=== PATIENT | female | born 1960 | race Caucasian/White ===

== ENCOUNTER 2016-09-06 18:54 | Observation (INO) | payer OTHER ==
--- NOTE | ~2016-09-06 | HP ---
History And Physical [address] [place]. [address] NAME: AURA BARKSDALE : 62 STATUS : ADM IN [facility]#: [id number] AGE: 56 ADM/REG DATE : 09/06/16 MR#: [id number] REPORT SERV DATE: 09/07/16 DICTATED BY: ARVIND CHRISTINE DATE: 09/06/16 REPORT STATUS : Draft TRANSCRIBED BY: MODAl DATE: 09/06/16 DATE OF ADMISSION: 09/06/2016 POINT OF ENTRY: [facility] Emergency Department. PRIMARY TRAIN STARTER: Addy Nance M.D. PRIMARY DIETITIAN CONSULTANT: Arvind Perez M.D. CHIEF COMPLAINT: Hematochezia and bright red blood per rectum. HISTORY OF PRESENT ILLNESS: Ms Barksdale is a 56-year-old female with a history of chronic anemia, iron deficiency anemia, peptic ulcer disease and diverticulosis who presents to the emergency room today with a few day history of abdominal pain, nausea, vomiting, as well as hematochezia. The patient states that beginning about 3 days ago, she started to develop diffuse primarily lower quadrant abdominal pain with associated nausea, occasional episodes of vomiting as well as multiple episodes of hematochezia, and bright red blood per rectum. She denies any fevers, night sweats, chills, chest pain, palpitations, shortness of breath, cough, or sputum production. Initial evaluation in the emergency room notable for hemoglobin of 9.8, white count was 13.3, BUN is 68, creatinine is 3.8. A CT of the abdomen and pelvis showed nonspecific colitis as well as evidence of distal diverticulosis. She was subsequently admitted to the Hospitalist Service for further evaluation and management. REVIEW OF SYSTEMS: Comprehensive review of systems otherwise negative unless listed in history of present illness. PREVIOUS MEDICAL HISTORY: 1. Chronic anemia. 2. Iron-deficiency anemia. 3. Gastroesophageal reflux disease and peptic ulcer disease. 4. Hypertension. 5. Hyperlipidemia. 6. Insulin-dependent diabetes mellitus type 2. 7. COPD. 8. Chronic kidney stage III, baseline creatinine 1.7 to 2.2. 9. Prior history of TIA. 10.Nonobstructive coronary artery disease. 11.Diverticulosis. SURGICAL HISTORY: Abdominal hysterectomy and shoulder surgery. History And Physical [address] [place] [address] NAME: AURA BARKSDALE : 62 STATUS : ADM IN PAT#: [id number] AGE: 56 ADM/REG DATE : 09/06/16 MR#: [id number] REPORT SERV DATE: 09/07/16 DICTATED BY: ARVIND CHRISTINE DATE: 09/06/16 REPORT STATUS : Draft TRANSCRIBED BY: MODAl DATE: 09/06/16 ALLERGIES: TO PENICILLIN AND LACTOSE. HOME MEDICATIONS: 1. Albuterol one puff inhalation p.r.n. shortness of breath. 2. Norvasc 5 mg daily. 3. Aspirin 81 mg daily. 4. Lactaid 1-2 tabs p.r.n. 5. Symbicort two puffs inhalation b.i.d. 6. Cilostazol 100 mg b.i.d. 7. Toujeo 100 units b.i.d. 8. Insulin Regular 12 units before meals. 9. Integra Plus capsule 1 tab daily. 10.Imdur 60 mg daily. 11.Toprol-XL 100 mg daily. 12.Protonix 40 mg b.i.d. 13.Crestor 40 mg at bedtime. 14.Senokot-D 2 tabs at bedtime. 15.Trazodone 50 mg at bedtime. SOCIAL HISTORY: Denies any tobacco, alcohol, or illicits. FAMILY MEDICAL HISTORY: Mother advanced age of meningitis. Father with coronary artery disease and diabetes. LABS AND IMAGIN. White count 13.3, hemoglobin 9.8, hematocrit 29.7, platelet count 334, INR is 1.0, MCV is 93. 2. Sodium is 135, potassium 4.4, chloride 99, carbon dioxide 25, BUN 68, creatinine 3.83, glucose is 127, calcium is 8.6, protein 7.2, albumin 3.2, bilirubin is 0.2, ALT is 23, AST 17, alkaline phosphatase is 114. 3. Lipase is 108. 4. CT of the abdomen and pelvis shows nonspecific colitis as well as distal diverticulosis. 5. EKG per review shows normal sinus rhythm. No evidence of any acute ischemia or infarction. PHYSICAL EXAMINATION: VITAL SIGNS: Temperature is 97.3 degrees Fahrenheit, pulse is 90, respirations 18, saturating 94% on room air. Blood pressure is 107/58. On recheck, blood pressure is now 96/50, pulse is 77. GENERAL: The patient is awake, alert, in no acute distress. Resting comfortably in bed. Well-developed, well-nourished, female. HEENT: Atraumatic and normocephalic. Slightly dry mucous membranes. Pupils are equal, round, reactive to light and accommodation. Extraocular eye movements are intact. No scleral icterus. NECK: No jugular venous distention. No carotid bruits. CARDIAC: Regular rate and rhythm. No murmurs, rubs, or gallops. Normal S1, S2. History And Physical [address] [address] NAME: AURA BARKSDALE : 62 STATUS : ADM IN [facility]#: [id number] AGE: 56 ADM/REG DATE : 09/06/16 MR#: [id number] REPORT SERV DATE: 09/07/16 DICTATED BY: ARVIND CHRISTINE DATE: 09/06/16 REPORT STATUS : Draft TRANSCRIBED BY: ARIANA DATE: 09/06/16 LUNGS: Clear to auscultation bilaterally. No wheezes, rhonchi, or crackles. ABDOMEN: Soft, mildly tender to palpation in all quadrants primarily left lower quadrant. No rebound, guarding, or rigidity. EXTREMITIES: Warm and perfused. No cyanosis, clubbing, or edema. SKIN: Warm and dry. PSYCH: Affect appropriate. NEURO: Alert, oriented x3. Cranial nerves 2 through 12 grossly intact. Speech is normal. Gait is not assessed. ASSESSMENT AND PLAN: Ms Barksdale is a 56-year-old female, who presents with a few day history of abdominal pain, nausea, vomiting, as well as hematochezia and found to have evidence of colitis. PROBLEM LIST: 1. Colitis. 2. Hematochezia. 3. Acute kidney injury on chronic kidney disease stage 3. 4. Leukocytosis. 5. Chronic iron-deficiency anemia. 6. Insulin-dependent diabetes mellitus type 2. 7. Hypertension. PLAN: 1. Colitis. We will place on IV antibiotics of Flagyl and Levaquin. Check stool studies such as stool culture, C. diff, and ova and parasites. 2. Hematochezia likely secondary to colitis. We will consult the patient's primary sole stapler welt Dr. Nance for assistance. Of note, the patient does report that last lab, her hemoglobin was 12 and is now 9.8 and shows some moderate amount of decline. We will check q.6 hours hemoglobin and hematocrit first 24 hours, transfuse hemoglobin less than 7. 3. Acute kidney injury on chronic kidney disease stage III likely secondary to GI losses and poor oral intake for the last few days. Holding nephrotoxic medications. Provide IV fluid hydration. Checking renal ultrasound as well as urine lytes. 4. Leukocytosis, again likely secondary to colitis but we will check urinalysis as well as chest x-ray. 5. Insulin-dependent diabetes mellitus type 2. Continue patient's home Toujeo, holding nutritional insulin given n.p.o. status. Placed on level 2 sliding scale. 6. Hypertension. Hold patient's medications for systolics less than 120. 7. DVT prophylaxis, TEDs and SCDs given bleeding. CODE STATUS: The patient wished to be full code. ENDY/ARIANA Arvind Barreto History And Physical [address] [address] NAME: AURA BARKSDALE : 62 STATUS : ADM IN [facility]#: [id number] AGE: 56 ADM/REG DATE : 09/06/16 MR#: [id number] REPORT SERV DATE: 09/07/16 DICTATED BY: ARVIND CHRISTINE DATE: 09/06/16 REPORT STATUS : Draft TRANSCRIBED BY: ARIANA DATE: 09/06/16 MD Hal / [id number] CC: DO Haroon Prieto M.D. James A Tumlin, M.D. Sumeet Bhushan, M.D.
--- NOTE | ~2016-09-06 | DS ---
Discharge Summary [facility] [address] [place]. [address] NAME: AURA BARKSDALE : 62 STATUS : ADM IN [facility]#: [id number] AGE: 56 ADM/REG DATE : 09/06/16 MR#: [id number] REPORT SERV DATE: 09/07/16 DICTATED BY: BERTHA RICHARD DATE: 09/07/16 REPORT STATUS : Draft TRANSCRIBED BY: MODL DATE: 09/07/16 ADMISSION DATE: 09/06/2016 DISCHARGE DATE: 09/07/2016 FINAL HOSPITAL DIAGNOSES: 1. Hematochezia. 2. Colitis. 3. Anemia. 4. Diabetes. 5. Hypertension. 6. Chronic obstructive pulmonary disease. 7. Chronic kidney disease. CONSULTATIONS: GI. PROCEDURES: CT scan of the abdomen and pelvis done on the showing mild colitis in the transverse and descending colon. There was some distal diverticulosis. CURRENT PHYSICAL FINDINGS AND HPI: Please see dictated H and P by Dr. Hong. In brief, the patient is a 56-year-old female, who was admitted with above complaints. Initial lab work showed a creatinine of 3.83, subsequent repeat was 2.84, baseline appears to be around 2.0. Initial white count was 13, subsequent was 10; initial H and H was 9.8, subsequent was 8.8. HOSPITAL COURSE: The patient was admitted. GI was consulted, Dr. Nance. She was given IV fluids. Cultures were drawn. She was started on sliding scale and IV antibiotics, Levaquin and Flagyl. The patient apparently had an uneventful evening in the hospital. She was seen by GI, Dr. Jacobs in the a.m. and scheduled for prep and a colonoscopy. However, unfortunately, the patient was notified that her son had been in a major motor vehicle accident and was in critical condition. Ms. Barksdale felt she needed to be discharged to be with her son. Unfortunately, I was attending a patient in the IMCU and was not able to immediately come down to discharge her and she was unable to wait for me before leaving to see her son. She did sign the [facility] papers. We will certainly be available after her family crisis if any additional treatment or needs are noted. The patient left [facility] due to a family emergency on the morning of 09/07/2016. TLF/ARIANA Bertha Richard M.D. / [id number] Discharge Summary [place] [place] [place]. [address] NAME: AURA BARKSDALE : 62 STATUS : ADM IN PAT#: [id number] AGE: 56 ADM/REG DATE : 09/06/16 MR#: [id number] REPORT SERV DATE: 09/07/16 DICTATED BY: BERTHA RICHARD DATE: 09/07/16 REPORT STATUS : Draft TRANSCRIBED BY: ARIANA DATE: 09/07/16 CC: Antwan Vu M.D.
--- NOTE | ~2016-09-06 | CN ---
Consultation Report [facility] [address] [place]. [address] NAME: AURA BARKSDALE : 62 STATUS : DIS IN PAT#: [id number] AGE: 56 ADM/REG DATE : 09/06/16 MR#: [id number] REPORT SERV DATE: 09/09/16 DICTATED BY: DARLING JACOBS DATE: 09/07/16 REPORT STATUS : Draft TRANSCRIBED BY: MODAl DATE: 09/07/16 GI CONSULTATION DATE OF CONSULTATION: REASON FOR CONSULTATION: Abdominal pain and GI bleed. HISTORY OF PRESENT ILLNESS: Ms. Barksdale is a 56-year-old lady, a patient of Dr. Addy Nance, who presented to the emergency room with lower abdominal pain and cramping going on for a few days, now also associated with bleeding per rectum. The patient has a history of iron-deficiency anemia and actually has been seen by Dr. Almendarez in the past. She is also under the care of Dr. Hickman. In the past, at one point, she had a hemoglobin of 3, underwent an EGD and a colonoscopy and a capsule exam at that time, and it showed multiple large gastric erosions, duodenal erosions, and small bowel AVMs. She was at that time on pantoprazole. When she was admitted in 07/2015, Dr. Almendarez had seen and with a low hemoglobin, and after workup she was told that she had no acute findings. Dr. Nance has done an EGD on her on 04/02/2016, which revealed a normal esophagus with a small hiatal hernia, nonbleeding erosive gastropathy, and two nonbleeding AVMs in the duodenum that he had cauterized using an argon beam coagulation. As mentioned, she comes in with lower abdominal pain, cramping, and lower GI bleed. On admission, her vitals have been stable. She was found to have a hemoglobin of 8.8, which is down from in the past. At one point when Dr. Hickman saw her in 03/2016, the hemoglobin was 9.8. Her white count is 10.7 and platelets are 253,000 with an INR of 1. Her chemistry panel revealed a BUN and creatinine of 55 and 2.84. She has a history of chronic kidney disease stage 3 and is under the care of Nephrology. This time on admission, her bicarb was 25 and is down to [address] scan of the abdomen and pelvis done through the emergency room without contrast revealed mild colitis in the transverse and descending colon. Also some distal diverticulosis. She tells me at this point today she is feeling some better. The bleeding has slowed down, but she still has some slimy bloody BM. Actually, she has had only one since admission. MEDICAL HISTORY: 1. Severe DANI for which she has had an extensive workup before. 2. 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 3. Diverticulosis. 4. Chronic kidney disease. 5. Diabetes. 6. Hypertension. 7. COPD. 8. Past TIA. 9. Acid reflux. Consultation Report [address] [place]. [address] NAME: AURA BARKSDALE : 62 STATUS : DIS IN PAT#: [id number] AGE: 56 ADM/REG DATE : 09/06/16 MR#: [id number] REPORT SERV DATE: 09/09/16 DICTATED BY: DARLING JACOBS DATE: 09/07/16 REPORT STATUS : Draft TRANSCRIBED BY: ARIANA DATE: 09/07/16 HOME MEDICATIONS: Include albuterol, amlodipine, baby aspirin, Symbicort, Pletal, insulin, iron, Imdur, Toprol-XL, Protonix, Crestor, Desyrel, and IBgard. ALLERGIES: PENICILLIN. HABITS: Does not smoke or drink. FAMILY HISTORY: No first-degree relatives with any colon or pancreatic cancers. REVIEW OF SYSTEMS: GENERAL: Describes the general health to be fair. There is no fever, chills, or weight loss. There is anorexia and weakness. No dizziness, itching, night sweats, or night fevers. SKIN: Normal. HEENT: Vision is decreasing. Hearing is normal. ENDOCRINE: Diabetes. GENITOURINARY: Negative. MUSCULOSKELETAL: History of back pain and arthritis. NEUROLOGICAL: History of TIA. GASTROINTESTINAL: As mentioned above. PULMONARY: No shortness of breath or cough. CARDIOVASCULAR: No chest pain or palpitations. PAST SURGERIES: Include a complete hysterectomy. PHYSICAL EXAMINATION: GENERAL: She is a fully alert, oriented 56-year-old, in no acute distress at this point, just complaining of some mild lower abdominal discomfort. NECK: Supple without lymphadenopathy, thyromegaly, or carotid bruits. HEENT: Normal. LUNGS: Reveal good air entry bilaterally. No rales or rhonchi. CARDIOVASCULAR SYSTEM: Reveals normal S1, S2. No gallop, rub, or murmur. CENTRAL NERVOUS SYSTEM: Normal. ABDOMEN: Soft and nondistended with tenderness in the left side of the abdomen. There is no mass, guarding, rigidity, or rebound. Liver and spleen not palpable. Clinically no ascites. EXTREMITIES: Without edema. IMPRESSION: 1. Left-sided abdominal pain with hematochezia, and CT scan showing colitis of the descending and transverse colon, most likely a case of left-sided ischemic colitis. 2. Chronic iron deficiency anemia. 3. Other problems as mentioned above. Consultation Report [address] [place]. [address] NAME: AURA BARKSDALE : 62 STATUS : DIS IN PAT#: [id number] AGE: 56 ADM/REG DATE : 09/06/16 MR#: [id number] REPORT SERV DATE: 09/09/16 DICTATED BY: DARLING JACOBS DATE: 09/07/16 REPORT STATUS : Draft TRANSCRIBED BY: ARIANA DATE: 09/07/16 RECOMMENDATIONS: Discussed the case with the patient. The patient is agreeable for a colonoscopy, and we will plan colonoscopy for tomorrow. TROY/ARIANA Emanuel Jacobs M.D. / [id number] CC: Antwan Vu M.D. James A Tumlin, M.D. Sumeet Bhushan, M.D.
[2016-09-06 15:42] LABS: BASOPHILS 0.4 %; BASOPHILS ABSOLUTE 0.05 10/3/uL (0.0-0.16); EOSINOPHILS 4.3 %; EOSINOPHILS ABSOLUTE 0.57 10/3/uL (0.0-0.53); HEMATOCRIT 29.7 % (36.0-48.0); HEMOGLOBIN 9.8 g/dL (12.0-16.0); IMMATURE GRANULOCYTES 0.2 %; IMMATURE GRANULOCYTES ABSOLUTE 0.02 10/3/uL (0.0-0.11); LYMPHOCYTES ABSOLUTE 1.33 10/3/uL (0.67-4.30); MEAN PLATELET VOLUME 10.1 fL (9.2-13.0); MONOCYTES 6.8 %; NEUTROPHILS 78.3 %; NEUTROPHILS ABSOLUTE 10.43 10/3/uL (2.02-8.40); PLATELET COUNT 334 10/3/uL (150-400)
[2016-09-06 15:43] LABS: MANUAL DIFF NO %; MEAN CORPUSCULAR HEMOGLOB 30.6 pg (26.0-34.0); MEAN CORPUSCULAR VOLUME 92.8 fL (80-100); RBC DISTRIBUTION WIDTH 14.9 % (12.0-16.0); WHITE BLOOD CELLS 13.3 10/3/uL (4.5-10.5)
[2016-09-06 15:51] LABS: PARTIAL THROMBO TIME 31.5 SEC (22.5-37.2); PROTIME (NOT ORD) 12.9 SEC (12.0-14.5)
[2016-09-06 15:57] LABS: CALCIUM, SERUM 8.6 MG/DL (8.5-10.4); CO2 (CARBON DIOXIDE) 25 MMOL/L (24-34); GLUCOSE, SERUM 127 MG/DL (60-99); POTASSIUM, SERUM 4.4 MMOL/L (3.5-5.3); SGOT(AST) 17 U/L (5-40); SGPT(ALT) 23 U/L (5-65); SODIUM, SERUM 135 MMOL/L (135-148); TOTAL BILIRUBIN 0.2 MG/DL (0-1.2); TOTAL PROTEIN 7.2 G/DL (6.0-8.5)
[2016-09-06 15:58] LABS: BUN (BLOOD UREA NITROGEN) 68 MG/DL (6-23); CHLORIDE, SERUM 99 MMOL/L (96-112); CREATININE 3.83 MG/DL (0.55-1.02); GFR AFRICAN AMERICAN 14 ML/MIN (>=60); GFR NON AFRICAN AMERICAN 12 ML/MIN (>=60)
[2016-09-06 15:59] LABS: A/G RATIO 0.8 (0.7-1.9); ALBUMIN 3.2 G/DL (3.5-5.0); ALKALINE PHOSPHATASE 114 U/L (45-117)
[~2016-09-06 18:54] MED LIST: ASAB PO; FERROUS SULF325 M1 PO; FISH-EPA1000 MG PO; GLUCOPHAGE1000 MG PO; IMDUR30 PO; INSNOVN SC; INSNOVR SC; IRON325 MG PO; LIPITOR80 MG PO; LISINOPRIL40 MG PO; LOP50 PO; MIRALAXPKT PO; NEUR600 PO; NORCO1 TA2 PO; NORV5 PO; PROTONIX PO; SENTAB PO; SLO-NIACIN500 MG PO; SLOWMAG PO; SYMBICORT 160/41 INH INH; TRAZ50 PO; VENTOLIN HFA INH
[2016-09-06 19:03] LABS: DIRECT BILIRUBIN < 0.1 MG/DL (0.0-0.4); INDIRECT BILIRUBIN(NOT ORDER) 0.1 MG/DL (0.1-0.9)
[2016-09-06] MEDS ORDERED: INSNOVR SC (21:13)
[2016-09-06] MEDS ORDERED: ASAB PO (21:14)
[2016-09-06] MEDS ORDERED: TOUJEO SC (21:14)
[2016-09-06] MEDS ORDERED: CILOSTAZOL100 MG PO (21:17)
[2016-09-06] MEDS ORDERED: CRESTOR40 MG PO (21:18)
[2016-09-06] MEDS ORDERED: NORV5 PO (21:18)
[2016-09-06] MEDS ORDERED: PROTONIX PO (21:18)
[2016-09-06] MEDS ORDERED: PERI-COLACE1 TAB PO (21:18)
[2016-09-06] MEDS ORDERED: TRAZ50 PO (21:18)
[2016-09-06] MEDS ORDERED: LACTAID FAS9000 UNI1 PO (21:19)
[2016-09-06] MEDS ORDERED: SYMBICORT 160/41 INH INH (21:20)
[2016-09-06] MEDS ORDERED: [UNRECOGNIZED DRUG - OTHER] PO (21:20)
[2016-09-06] MEDS ORDERED: IMDUR60 PO (21:20)
[2016-09-06] MEDS ORDERED: VENTOLIN HFA INH (21:20)
[2016-09-06] MEDS ORDERED: INTEGRA PLUS C1 EACH PO (21:21)
[2016-09-06] MEDS ORDERED: TOPXL100 PO (21:21)
[2016-09-07 01:47] LABS: HEMOGLOBIN 8.7 g/dL (12.0-16.0)
[2016-09-07 01:50] LABS: HEMATOCRIT 26.6 % (36.0-48.0)
[2016-09-07 04:57] LABS: CREATININE, URINE 34.5 MG/DL
[2016-09-07 07:27] LABS: HEMOGLOBIN 8.8 g/dL (12.0-16.0); MEAN CORPUS HGB CONC 31.4 g/dL (32.0-36.0); MEAN CORPUSCULAR HEMOGLOB 30.2 pg (26.0-34.0); MEAN PLATELET VOLUME 9.9 fL (9.2-13.0); NUCLEATED RED BLOOD CELLS 0.3 /100WBC (0-0); PLATELET COUNT 253 10/3/uL (150-400); RBC DISTRIBUTION WIDTH 14.9 % (12.0-16.0); RED CELL COUNT 2.91 10/6/uL (4.0-5.6); WHITE BLOOD CELLS 10.7 10/3/uL (4.5-10.5)
[2016-09-07 07:28] LABS: MEAN CORPUSCULAR VOLUME 96.2 fL (80-100)
[2016-09-07 07:29] LABS: MANUAL DIFF YES %
[2016-09-07 07:38] LABS: CALCIUM, SERUM 8.7 MG/DL (8.5-10.4); CHLORIDE, SERUM 112 MMOL/L (96-112); SODIUM, SERUM 141 MMOL/L (135-148)
[2016-09-07 07:39] LABS: BUN (BLOOD UREA NITROGEN) 55 MG/DL (6-23); CO2 (CARBON DIOXIDE) 18 MMOL/L (24-34); CREATININE 2.84 MG/DL (0.55-1.02); GFR AFRICAN AMERICAN 21 ML/MIN (>=60); GFR NON AFRICAN AMERICAN 18 ML/MIN (>=60); GLUCOSE, SERUM 75 MG/DL (60-99)
[2016-09-07 08:14] LABS: BAND NEUTROPHILS 6 %; EOSINOPHILS 1 %; EOSINOPHILS ABSOLUTE (CALC) 0.11 10/3/uL (0.0-0.53); HYPOCHROMIA 1+ (3-10/OIF) (0-2/OIF); LYMPHOCYTES 10 %; LYMPHOCYTES ABSOLUTE (CALC) 1.07 10/3/uL (0.67-4.30); MONOCYTES 6 %; MONOCYTES ABSOLUTE (CALC) 0.64 10/3/uL (0.21-1.20); NEUTROPHILS ABSOLUTE (CALC) 8.88 10/3/uL (2.02-8.40); PLATELET ESTIMATE ADQ (ADEQUATE); SEGMENTED NEUTROPHIL (0) 77 %; TOTAL NUCLEATED CELLS 100
== END 2016-09-07 13:26 | disposition left against medical advice (07) ==
LOC: ER 18:54 → 7NO 22:15
PROVIDERS: Emergency Medicine; Internal Medicine
DX: K92.1 Melena (principal); K52.9 Noninfective gastroenteritis and colitis, unspecified; K21.9 Gastro-esophageal reflux disease without esophagitis; E78.5 Hyperlipidemia, unspecified; I13.0 Hypertensive heart and chronic kidney disease with heart failure and stage 1 through stage 4 chronic kidney disease, or unspecified chronic kidney disease; I50.9 Heart failure, unspecified; N18.9 Chronic kidney disease, unspecified; E11.22 Type 2 diabetes mellitus with diabetic chronic kidney disease; J44.9 Chronic obstructive pulmonary disease, unspecified; I25.10 Atherosclerotic heart disease of native coronary artery without angina pectoris; Z86.73 Personal history of transient ischemic attack (TIA), and cerebral infarction without residual deficits; Z90.710 Acquired absence of both cervix and uterus; Z98.890 Other specified postprocedural states; Z88.0 Allergy status to penicillin; Z88.8 Allergy status to other drugs, medicaments and biological substances; Z79.82 Long term (current) use of aspirin; Z79.899 Other long term (current) drug therapy
CPT/HCPCS: 36415; 36430; 74176; 80048; 80053; 82248; 82570; 82962; 83690; 83935; 84300; 85014; 85018; 85025; 85610; 85730; 86850; 86900; 86901; 86920; 93005; 94640; 96374; 96375; 96376; 99285; A9270-GY; C9113; G0378; J1956

== ENCOUNTER 2016-10-10 20:07 | Inpatient (IN) | payer OTHER ==
--- NOTE | ~2016-10-10 | HP ---
History And Physical [address] [place]. [address] NAME: AURA BRICE : 62 STATUS : ADM IN [facility]#: [id number] AGE: 56 ADM/REG DATE : 10/11/16 MR#: [id number] REPORT SERV DATE: 10/11/16 DICTATED BY: MEIR BETHEA DATE: 10/11/16 REPORT STATUS : Draft TRANSCRIBED BY: MODAl DATE: 10/11/16 DATE OF ADMISSION: 10/11/2016 CHIEF COMPLAINT: A 56-year-old female presenting with abdominal pain and low blood pressure. HISTORY OF PRESENTING ILLNESS: The patient's history was obtained through careful interview with the patient, coupled with review of [facility] medical records. The patient in August 2016, presented to the hospital with colitis. She was thought to be in stable condition, although she states she never really improved from that recent hospital stay. She was not placed on any antibiotics upon discharge from the hospital. Over these last few weeks, the patient has had persistent and even increasing abdominal pain. She describes it is primarily in her left lower quadrant, sometimes radiating towards her flank and that side, an aching quality up to 10/10 severity that effects her on a daily basis. She has had some slight constipation. No diarrhea. She has had mild fevers and chills. Over the last week or so, she has really suffered from lightheadedness and states that she has actually had multiple syncopal episodes over the last four or five days. She states that a few times she has woken up on the kitchen floor. No shortness of breath. She has occasional nonproductive cough. No chest pain and she claims diabetes is under good control. REVIEW OF SYSTEMS: Otherwise, a fourteen-point review of systems was obtained and was negative. PAST MEDICAL HISTORY: 1. COPD. 2. Transient ischemic attack. 3. Colitis, seen by Dr. Addy Nance. 4. Peptic ulcer disease. 5. Duodenal arteriovenous malformations. 6. Chronic kidney disease, stage IV. Baseline creatinine of 2.0 to 2.8. 7. Hypertension. 8. Coronary artery disease, but no percutaneous intervention during catheterization of the heart in 2006. 9. Hypertension. 10.Gastroesophageal reflux disorder. PAST SURGICAL HISTORY: 1. Hysterectomy. 2. Shoulder surgery. History And Physical [facility] [address] [address] NAME: AURA BRICE : 62 STATUS : ADM IN [facility]#: [id number] AGE: 56 ADM/REG DATE : 10/11/16 MR#: [id number] REPORT SERV DATE: 10/11/16 DICTATED BY: MEIR BETHEA DATE: 10/11/16 REPORT STATUS : Draft TRANSCRIBED BY: ARIANA DATE: 10/11/16 ALLERGIES: PENICILLIN AND LACTOSE. SOCIAL HISTORY: Quit smoking 40+ years ago, quit alcohol. She is to her who is a local company intermodal truck driver. She lived most of her life in [place]. She has four children and nine grandchildren. She is to work for a [employer]. She has a dog and a cat that she cares for. FAMILY HISTORY: Mother with meningitis. Father with heart disease and diabetes. CURRENT MEDICATIONS: Include albuterol, aspirin 81 mg p.o. daily, Symbicort two puffs inhaled twice a day, Pletal 100 mg p.o. b.i.d., diltiazem extended release 180 mg daily, Zetia 10 mg p.o. daily, Lasix 20 mg p.o. b.i.d., Toujeo, glargine insulin 100 units subcutaneous twice a day, Novolin R 12 units subcutaneous with meals, iron supplement, lisinopril 10 mg daily, metoprolol-XL 50 mg daily, nitroglycerin, Protonix 40 mg p.o. b.i.d., Crestor 40 mg daily, Colace two tablets at bedtime, trazodone 50 mg p.o. at bedtime "research medication," and Effexor 50 mg p.o. t.i.d. PHYSICAL EXAMINATION: VITAL SIGNS: Temperature 99.5, pulse 88, blood pressure 71/37, respiratory rate 22, O2 saturation 95% on room air. GENERAL: A pleasant, cooperative female, very lethargic, though. HEENT: Pupils equal, round, and reactive to light. No conjunctival pallor. No scleral icterus. Nares are patent. Oropharynx is clear of obstruction. Dry mucous membranes. NECK: Trachea midline. No thyromegaly. LYMPH: No cervical lymphadenopathy. No supraclavicular lymphadenopathy. RESPIRATORY: Clear to auscultation at bases. No wheezes are appreciated. No rales. No rhonchi. The patient has a normal respiratory effort. CARDIOVASCULAR: Regular rate and rhythm. No murmurs, rubs, or gallops. No extremity edema is appreciated. ABDOMEN: Significant left lower quadrant abdominal pain with guarding. No rebound effect. Nondistended. No hepatosplenomegaly. DERMATOLOGICAL: Warm and dry extremities. No pallor. No cyanosis. PSYCHIATRIC: The patient is quite lethargic, but easily aroused. She is oriented x3. She has a normal affect and a very pleasant mood. LABORATORY DATA: White blood count 15.3, hemoglobin 8.7, hematocrit 28.4, and platelets 416. Sodium 139, potassium 4.9, chloride 107, bicarb 23, BUN 68, creatinine 3.07, glucose 76, lipase 215. Troponin negative. Lactic acid 0.2. Liver enzymes within normal limits. Urinalysis negative for infection. STUDIES: 1. Chest x-ray by my own evaluation shows no acute cardiopulmonary process. 2. EKG by my own evaluation shows no acute abnormality, sinus rhythm. 3. CT scan of the abdomen and pelvis shows possible ground-glass opacities in bilateral lung bases, but no significant abdominal process. ASSESSMENT AND PLAN: History And Physical [address] [address] NAME: AURA BRICE : 62 STATUS : ADM IN [facility]#: [id number] AGE: 56 ADM/REG DATE : 10/11/16 MR#: [id number] REPORT SERV DATE: 10/11/16 DICTATED BY: MEIR BETHEA DATE: 10/11/16 REPORT STATUS : Draft TRANSCRIBED BY: MODL DATE: 10/11/16 1. Sepsis with shock, presumptive diagnosis. The patient has elevated white blood count of 16.3, subjective fevers, shock and tachypnea. We will check blood cultures. Place on IV antibiotics. Clinically, it appears as if she has something like recurrent sigmoid colitis or another type of infectious colitis. 2. Acute kidney injury on chronic kidney disease. We will place on IV fluids and monitor. 3. Diabetes. Hemoglobin A1c of 6.7 recently. Continue basal insulin and sliding scale insulin. 4. Chronic obstructive pulmonary disease, placed on DuoNeb nebulizers. 5. Anemia. KPL/MODL Meir Bethea M.D. / [id number] CC: Antwan Lindo M.D. John Wood, M.D. Sumeet Bhushan, M.D.
--- NOTE | ~2016-10-10 | DS ---
Discharge Summary [facility] [address] [place]. [address] NAME: AURA BRICE : 62 STATUS : DIS IN PAT#: [id number] AGE: 56 ADM/REG DATE : 10/11/16 MR#: [id number] REPORT SERV DATE: 10/18/16 DICTATED BY: CALI MCKNIGHT DATE: 10/17/16 REPORT STATUS : Draft TRANSCRIBED BY: ARIANA DATE: 10/17/16 ADMISSION DATE: 10/11/2016 DISCHARGE DATE: 10/17/2016 PROCEDURES DONE: 1. On 10/10/2016, chest x-ray PA and lateral. Prominent right mediastinum may be secondary to prominent superior vena cava. I have no old films for comparison. May wish to consider chest CT if there are any risk factors or suspicious finding of underlying occult malignancy. 2. On 10/11/2016, chest x-ray negative. AP portable chest. 3. On 10/11/2016, CT of the abdomen and pelvis without contrast. There is extensive diverticular formation in sigmoid colon with subtle stranding, questionable small area of cryptic diverticulitis. Edema and abdominal consistent with prior site of subcutaneous injections. Cyst on the right kidney. 4. On 10/12/2016, hip x-ray, left. No acute bony abnormality appreciated. 5. On 10/13/2016, CT kidney protocol. Kidneys are symmetric and normal size, not mechanically obstructed. There is evidence of calcification probably small stone in the right kidney unchanged from prior exam. There is now evidence of more subtle, but definitely inflammatory changes around the sigmoid colon securing a diagnosis of diverticulitis. Subcutaneous edema in abdominal consistent with site of previous medical injections. REASON FOR ADMISSION: Abdominal pain and low blood pressure. HISTORY OF PRESENT ILLNESS: A 56-year-old white female with past medical history of COPD, diabetes type 2, hypertension, chronic kidney disease stage IV, history of peptic ulcer disease, artery coronary disease, presenting with abdominal pain and low blood pressure. The patient was admitted for further evaluation and treatment for abdominal pain and low blood pressure. The patient was previously admitted on August 2016 for colitis. However, the patient had elevated white cell count with fevers and tachypneic at presentation. CT scan of the abdomen and pelvis shows a diverticulitis in the sigmoid colon. The patient was started on Levaquin and Flagyl and subsequently, the patient was able to tolerate p.o. intake and mobilize without any pain. The patient is advised to follow up with her primary care physician within one to two weeks' time. DISPOSITION: The patient is feeling fine, no complaints. ACTIVITIES: As tolerated. DIET: Diabetic. INSTRUCTIONS UPON DISCHARGE: The patient is to followup with PMD within two weeks' time. MEDICATION UPON DISCHARGE: 1. Aspirin 81 mg p.o. daily. 2. Pletal 100 mg p.o. b.i.d. Discharge Summary [address] [address] NAME: AURA BRICE : 62 STATUS : DIS IN PAT#: [id number] AGE: 56 ADM/REG DATE : 10/11/16 MR#: [id number] REPORT SERV DATE: 10/18/16 DICTATED BY: CALI MCKNIGHT DATE: 10/17/16 REPORT STATUS : Draft TRANSCRIBED BY: ARIANA DATE: 10/17/16 3. Diltiazem 180 mg p.o. daily. 4. Zetia 10 mg p.o. at bedtime. 5. Integra Plus capsule one tablet q.a.m. 6. Toujeo 100 units subcu b.i.d. 7. Metoprolol-XL 50 mg p.o. daily. 8. Protonix 40 mg b.i.d. 9. Trazodone 50 mg p.o. at bedtime. 10.Effexor 50 mg p.o. t.i.d. 11.Albuterol one puff p.r.n. 12.Symbicort 160/4.5 two puffs b.i.d. 13.Lisinopril 10 mg p.o. daily. 14.Lasix 20 mg p.o. b.i.d. 15.Crestor 40 mg p.o. at bedtime. 16.Novolin R subcu with meals. 17.Nitroglycerin sublingual p.r.n. 18.Colace two tablets p.o. at bedtime. DIAGNOSES UPON DISCHARGE: 1. Abdominal pain secondary to sigmoid diverticulitis. 2. Sigmoid diverticulitis. 3. Diabetes. 4. Hypertension. 5. Hyperlipidemia. 6. Depression. ARTURO/MODL Cali Mcknight MD / [id number] CC: MD Haroon Maria M.D.
[~2016-10-10 20:07] MED LIST changes: +CILOSTAZOL100 MG PO; +CRESTOR40 MG PO; +IMDUR60 PO; +INTEGRA PLUS C1 EACH PO; +LACTAID FAS9000 UNI1 PO; +PERI-COLACE1 TAB PO; +TOPXL100 PO; +TOUJEO SC; +[UNRECOGNIZED DRUG - OTHER] PO
[2016-10-10 21:05] LABS: WBC (NOT ORDERED) (RFLEX) 0 (0-5)
[2016-10-10 21:16] LABS: BASOPHILS 0.5 %; BASOPHILS ABSOLUTE 0.07 10/3/uL (0.0-0.16); EOSINOPHILS 4.6 %; EOSINOPHILS ABSOLUTE 0.71 10/3/uL (0.0-0.53); ER CBC TAT 0 Hrs 09 Mins; HEMATOCRIT 28.4 % (36.0-48.0); HEMOGLOBIN 8.7 g/dL (12.0-16.0); IMMATURE GRANULOCYTES 0.5 %; IMMATURE GRANULOCYTES ABSOLUTE 0.07 10/3/uL (0.0-0.11); LYMPHOCYTES ABSOLUTE 2.14 10/3/uL (0.67-4.30); MANUAL DIFF NO %; MEAN CORPUS HGB CONC 30.6 g/dL (32.0-36.0); MEAN CORPUSCULAR HEMOGLOB 28.7 pg (26.0-34.0); MEAN CORPUSCULAR VOLUME 93.7 fL (80-100); MEAN PLATELET VOLUME 10.2 fL (9.2-13.0); MONOCYTES 4.3 %; MONOCYTES ABSOLUTE 0.66 10/3/uL (0.21-1.20); NEUTROPHILS 76.1 %; NEUTROPHILS ABSOLUTE 11.67 10/3/uL (2.02-8.40); PLATELET COUNT 416 10/3/uL (150-400); RED CELL COUNT 3.03 10/6/uL (4.0-5.6); WHITE BLOOD CELLS 15.3 10/3/uL (4.5-10.5)
[2016-10-10 21:17] LABS: ASCORBIC ACID (UR NOT ORDER) NEG (NEG); BILIRUBIN, URINE NEGATIVE (NEG); ER URINALYSIS TAT 0 Hrs 15 Mins; KETONE, URINE NEGATIVE (NEG); LEUKOCYTE ESTERASE(NOT OR NEG (NEG); NITRITE (URINE) NEG (NEG)
[2016-10-10 21:23] LABS: PARTIAL THROMBO TIME 28.9 SEC (22.5-37.2); PROTIME (NOT ORD) 13.4 SEC (12.0-14.5)
[2016-10-10 21:31] LABS: CHEST PAIN PROFILE TAT 0 Hrs 24 Mins; CHLORIDE, SERUM 107 MMOL/L (96-112); CREATININE 3.07 MG/DL (0.55-1.02); GFR AFRICAN AMERICAN 19 ML/MIN (>=60); GFR NON AFRICAN AMERICAN 16 ML/MIN (>=60); GLUCOSE, SERUM 76 MG/DL (60-99); POTASSIUM, SERUM 4.9 MMOL/L (3.5-5.3); SODIUM, SERUM 139 MMOL/L (135-148); TROPONIN I <0.02 NG/ML (<0.05)
[2016-10-10 21:32] LABS: BUN (BLOOD UREA NITROGEN) 68 MG/DL (6-23); CO2 (CARBON DIOXIDE) 23 MMOL/L (24-34)
[2016-10-11 02:01] LABS: ALBUMIN 3.7 G/DL (3.5-5.0); ALKALINE PHOSPHATASE 130 U/L (45-117); DIRECT BILIRUBIN < 0.1 MG/DL (0.0-0.4); INDIRECT BILIRUBIN(NOT ORDER) 0.2 MG/DL (0.1-0.9); SGOT(AST) 16 U/L (5-40); SGPT(ALT) 22 U/L (5-65); TOTAL BILIRUBIN 0.3 MG/DL (0-1.2); TOTAL PROTEIN 8.1 G/DL (6.0-8.5)
[2016-10-11] MEDS ORDERED: PRIN10 PO (03:04)
[2016-10-11] MEDS ORDERED: L20 PO (03:09)
[2016-10-11] MEDS ORDERED: TRAZ50 PO (03:10)
[2016-10-11] MEDS ORDERED: PROTONIX PO (03:11)
[2016-10-11] MEDS ORDERED: CILOSTAZOL100 MG PO (03:12)
[2016-10-11] MEDS ORDERED: DILT-XR180 MG PO (03:12)
[2016-10-11] MEDS ORDERED: CRESTOR40 MG PO (03:28)
[2016-10-11] MEDS ORDERED: SYMBICORT 160/41 INH INH (03:29)
[2016-10-11] MEDS ORDERED: TOUJEO SC (03:29)
[2016-10-11] MEDS ORDERED: ASAB PO (03:30)
[2016-10-11] MEDS ORDERED: VENTOLIN HFA INH (03:30)
[2016-10-11] MEDS ORDERED: INSNOVR SC (03:31)
[2016-10-11] MEDS ORDERED: TOPXL50 PO (03:31)
[2016-10-11] MEDS ORDERED: EFFEXOR50 MG PO (03:31)
[2016-10-11] MEDS ORDERED: ZETIA PO (03:31)
[2016-10-11] MEDS ORDERED: INTEGRA PLUS C1 EACH PO (03:32)
[2016-10-11] MEDS ORDERED: NITROSTAT0.4 MG SL (03:32)
[2016-10-11] MEDS ORDERED: PERI-COLACE1 TAB PO (03:35)
[2016-10-11] MEDS ORDERED: RESEARCH MED PO (03:44)
[2016-10-11 03:51] LABS: LACTATE 0.2 MMOL/L (0.3-2.4)
[2016-10-11 12:29] LABS: BASOPHILS 0.6 %; BASOPHILS ABSOLUTE 0.05 10/3/uL (0.0-0.16); EOSINOPHILS 4.8 %; HEMOGLOBIN 7.9 g/dL (12.0-16.0); IMMATURE GRANULOCYTES 0.7 %; IMMATURE GRANULOCYTES ABSOLUTE 0.06 10/3/uL (0.0-0.11); LYMPHOCYTES 12.2 %; LYMPHOCYTES ABSOLUTE 1.01 10/3/uL (0.67-4.30); MEAN CORPUS HGB CONC 31.2 g/dL (32.0-36.0); MEAN CORPUSCULAR HEMOGLOB 29.8 pg (26.0-34.0); MEAN CORPUSCULAR VOLUME 95.5 fL (80-100); MEAN PLATELET VOLUME 9.9 fL (9.2-13.0); MONOCYTES 6.8 %; MONOCYTES ABSOLUTE 0.56 10/3/uL (0.21-1.20); NEUTROPHILS 74.9 %; PLATELET COUNT 297 10/3/uL (150-400); RED CELL COUNT 2.65 10/6/uL (4.0-5.6)
[2016-10-11 12:32] LABS: ER CBC TAT 0 Hrs 12 Mins; HEMATOCRIT 25.3 % (36.0-48.0); MANUAL DIFF NO %; WHITE BLOOD CELLS 8.3 10/3/uL (4.5-10.5)
[2016-10-11 12:39] LABS: INTERNATIONAL NORMAL RATI 1.1 UNITS (-); PARTIAL THROMBO TIME 29.6 SEC (22.5-37.2); PROTIME (NOT ORD) 13.6 SEC (12.0-14.5)
[2016-10-11 13:23] LABS: CALCIUM, SERUM 8.3 MG/DL (8.5-10.4); CHLORIDE, SERUM 113 MMOL/L (96-112); CO2 (CARBON DIOXIDE) 21 MMOL/L (24-34); CPK 133 U/L (0-200); SGOT(AST) 11 U/L (5-40); SGPT(ALT) 20 U/L (5-65); SODIUM, SERUM 141 MMOL/L (135-148); TOTAL BILIRUBIN 0.1 MG/DL (0-1.2); TOTAL PROTEIN 6.6 G/DL (6.0-8.5); TROPONIN I <0.02 NG/ML (<0.05)
[2016-10-11 13:24] LABS: A/G RATIO 0.8 (0.7-1.9); ALBUMIN 2.9 G/DL (3.5-5.0); ALKALINE PHOSPHATASE 118 U/L (45-117); BUN (BLOOD UREA NITROGEN) 60 MG/DL (6-23); CK-MB 2.3 NG/ML; CREATININE 2.39 MG/DL (0.55-1.02); GFR AFRICAN AMERICAN 26 ML/MIN (>=60); GFR NON AFRICAN AMERICAN 22 ML/MIN (>=60); GLOBULIN 3.7 G/DL (2.5-4.1); GLUCOSE, SERUM 177 MG/DL (60-99)
[2016-10-11 14:33] LABS: PROCALCITONIN 0.08 ng/mL (<0.5)
[2016-10-12 07:20] LABS: BASOPHILS 0.6 %; BASOPHILS ABSOLUTE 0.04 10/3/uL (0.0-0.16); EOSINOPHILS 5.3 %; EOSINOPHILS ABSOLUTE 0.37 10/3/uL (0.0-0.53); HEMATOCRIT 24.3 % (36.0-48.0); HEMOGLOBIN 7.7 g/dL (12.0-16.0); IMMATURE GRANULOCYTES 0.3 %; IMMATURE GRANULOCYTES ABSOLUTE 0.02 10/3/uL (0.0-0.11); LYMPHOCYTES 11.6 %; LYMPHOCYTES ABSOLUTE 0.82 10/3/uL (0.67-4.30); MEAN CORPUS HGB CONC 31.7 g/dL (32.0-36.0); MEAN CORPUSCULAR VOLUME 94.6 fL (80-100); MEAN PLATELET VOLUME 10.4 fL (9.2-13.0); MONOCYTES ABSOLUTE 0.42 10/3/uL (0.21-1.20); NEUTROPHILS 76.2 %; NEUTROPHILS ABSOLUTE 5.37 10/3/uL (2.02-8.40); PLATELET COUNT 275 10/3/uL (150-400); RBC DISTRIBUTION WIDTH 14.8 % (12.0-16.0); RED CELL COUNT 2.57 10/6/uL (4.0-5.6)
[2016-10-12 07:26] LABS: MANUAL DIFF NO %
[2016-10-12 07:31] LABS: BUN (BLOOD UREA NITROGEN) 47 MG/DL (6-23); CALCIUM, SERUM 8.5 MG/DL (8.5-10.4); CHLORIDE, SERUM 111 MMOL/L (96-112); CO2 (CARBON DIOXIDE) 23 MMOL/L (24-34); CREATININE 1.92 MG/DL (0.55-1.02); GFR AFRICAN AMERICAN 33 ML/MIN (>=60); GFR NON AFRICAN AMERICAN 29 ML/MIN (>=60); GLUCOSE, SERUM 183 MG/DL (60-99); POTASSIUM, SERUM 4.6 MMOL/L (3.5-5.3); SODIUM, SERUM 145 MMOL/L (135-148)
[2016-10-13 05:59] LABS: BASOPHILS 0.5 %; BASOPHILS ABSOLUTE 0.04 10/3/uL (0.0-0.16); EOSINOPHILS 5.3 %; EOSINOPHILS ABSOLUTE 0.43 10/3/uL (0.0-0.53); HEMATOCRIT 24.1 % (36.0-48.0); HEMOGLOBIN 7.5 g/dL (12.0-16.0); IMMATURE GRANULOCYTES 0.4 %; IMMATURE GRANULOCYTES ABSOLUTE 0.03 10/3/uL (0.0-0.11); LYMPHOCYTES 14.8 %; MEAN CORPUS HGB CONC 31.1 g/dL (32.0-36.0); MEAN CORPUSCULAR VOLUME 96.4 fL (80-100); MEAN PLATELET VOLUME 10.5 fL (9.2-13.0); MONOCYTES 5.7 %; MONOCYTES ABSOLUTE 0.46 10/3/uL (0.21-1.20); NEUTROPHILS 73.3 %; NEUTROPHILS ABSOLUTE 5.93 10/3/uL (2.02-8.40); PLATELET COUNT 280 10/3/uL (150-400); WHITE BLOOD CELLS 8.1 10/3/uL (4.5-10.5)
[2016-10-13 06:00] LABS: MANUAL DIFF NO %
[2016-10-13 06:08] LABS: BUN (BLOOD UREA NITROGEN) 33 MG/DL (6-23); CALCIUM, SERUM 8.7 MG/DL (8.5-10.4); CHLORIDE, SERUM 112 MMOL/L (96-112); CO2 (CARBON DIOXIDE) 26 MMOL/L (24-34); CREATININE 1.76 MG/DL (0.55-1.02); GFR AFRICAN AMERICAN 37 ML/MIN (>=60); GFR NON AFRICAN AMERICAN 32 ML/MIN (>=60); GLUCOSE, SERUM 160 MG/DL (60-99); POTASSIUM, SERUM 4.5 MMOL/L (3.5-5.3); SODIUM, SERUM 148 MMOL/L (135-148)
[2016-10-13 21:17] LABS: ASCORBIC ACID (UR NOT ORDER) NEG (NEG); BILIRUBIN, URINE NEGATIVE (NEG); KETONE, URINE NEGATIVE (NEG); LEUKOCYTE ESTERASE(NOT OR NEG (NEG); WBC (NOT ORDERED) (RFLEX) < 1 (0-5)
[2016-10-14 06:22] LABS: HEMOGLOBIN 7.9 g/dL (12.0-16.0); MANUAL DIFF YES %; MEAN CORPUS HGB CONC 31.6 g/dL (32.0-36.0); MEAN CORPUSCULAR HEMOGLOB 30.2 pg (26.0-34.0); MEAN CORPUSCULAR VOLUME 95.4 fL (80-100); MEAN PLATELET VOLUME 10.3 fL (9.2-13.0); PLATELET COUNT 275 10/3/uL (150-400); RBC DISTRIBUTION WIDTH 14.7 % (12.0-16.0); RED CELL COUNT 2.62 10/6/uL (4.0-5.6); WHITE BLOOD CELLS 8.6 10/3/uL (4.5-10.5)
[2016-10-14 06:44] LABS: LYMPHOCYTES 1 %; LYMPHOCYTES ABSOLUTE (CALC) 0.09 10/3/uL (0.67-4.30); NEUTROPHILS ABSOLUTE (CALC) 8.51 10/3/uL (2.02-8.40); SEGMENTED NEUTROPHIL (0) 99 %; TOTAL NUCLEATED CELLS 100
[2016-10-14 06:45] LABS: RBC MORPHOLOGY NORM (NORMAL)
[2016-10-14 06:51] LABS: A/G RATIO 0.8 (0.7-1.9); CALCIUM, SERUM 9.3 MG/DL (8.5-10.4); CHLORIDE, SERUM 113 MMOL/L (96-112); CO2 (CARBON DIOXIDE) 22 MMOL/L (24-34); CREATININE 1.55 MG/DL (0.55-1.02); GFR AFRICAN AMERICAN 43 ML/MIN (>=60); GFR NON AFRICAN AMERICAN 37 ML/MIN (>=60); GLOBULIN 3.9 G/DL (2.5-4.1); SGPT(ALT) 17 U/L (5-65); SODIUM, SERUM 144 MMOL/L (135-148); TOTAL BILIRUBIN 0.2 MG/DL (0-1.2); TOTAL PROTEIN 6.9 G/DL (6.0-8.5)
[2016-10-14 06:54] LABS: ALKALINE PHOSPHATASE 103 U/L (45-117); BUN (BLOOD UREA NITROGEN) 23 MG/DL (6-23); GLUCOSE, SERUM 38 MG/DL (60-99); POTASSIUM, SERUM 4.9 MMOL/L (3.5-5.3); SGOT(AST) 30 U/L (5-40)
[2016-10-15 06:24] LABS: BASOPHILS 0.6 %; BASOPHILS ABSOLUTE 0.05 10/3/uL (0.0-0.16); EOSINOPHILS 5.1 %; EOSINOPHILS ABSOLUTE 0.39 10/3/uL (0.0-0.53); HEMATOCRIT 24.6 % (36.0-48.0); HEMOGLOBIN 7.8 g/dL (12.0-16.0); IMMATURE GRANULOCYTES 0.5 %; IMMATURE GRANULOCYTES ABSOLUTE 0.04 10/3/uL (0.0-0.11); LYMPHOCYTES 11.1 %; LYMPHOCYTES ABSOLUTE 0.86 10/3/uL (0.67-4.30); MEAN CORPUS HGB CONC 31.7 g/dL (32.0-36.0); MEAN CORPUSCULAR HEMOGLOB 29.9 pg (26.0-34.0); MEAN CORPUSCULAR VOLUME 94.3 fL (80-100); MEAN PLATELET VOLUME 10.3 fL (9.2-13.0); MONOCYTES 6.2 %; MONOCYTES ABSOLUTE 0.48 10/3/uL (0.21-1.20); NEUTROPHILS 76.5 %; PLATELET COUNT 273 10/3/uL (150-400); RBC DISTRIBUTION WIDTH 14.7 % (12.0-16.0); RED CELL COUNT 2.61 10/6/uL (4.0-5.6); WHITE BLOOD CELLS 7.7 10/3/uL (4.5-10.5)
[2016-10-15 06:28] LABS: MANUAL DIFF NO %
[2016-10-15 06:38] LABS: A/G RATIO 0.8 (0.7-1.9); ALKALINE PHOSPHATASE 110 U/L (45-117); BUN (BLOOD UREA NITROGEN) 20 MG/DL (6-23); CALCIUM, SERUM 8.9 MG/DL (8.5-10.4); CHLORIDE, SERUM 110 MMOL/L (96-112); CO2 (CARBON DIOXIDE) 24 MMOL/L (24-34); CREATININE 1.58 MG/DL (0.55-1.02); GFR AFRICAN AMERICAN 42 ML/MIN (>=60); GFR NON AFRICAN AMERICAN 36 ML/MIN (>=60); GLOBULIN 3.7 G/DL (2.5-4.1); GLUCOSE, SERUM 138 MG/DL (60-99); POTASSIUM, SERUM 4.9 MMOL/L (3.5-5.3); SGOT(AST) 18 U/L (5-40); SGPT(ALT) 18 U/L (5-65); SODIUM, SERUM 142 MMOL/L (135-148); TOTAL BILIRUBIN 0.1 MG/DL (0-1.2); TOTAL PROTEIN 6.7 G/DL (6.0-8.5)
[2016-10-16 04:51] LABS: BASOPHILS 0.6 %; BASOPHILS ABSOLUTE 0.05 10/3/uL (0.0-0.16); EOSINOPHILS 4.5 %; HEMATOCRIT 26.1 % (36.0-48.0); HEMOGLOBIN 8.3 g/dL (12.0-16.0); IMMATURE GRANULOCYTES 0.7 %; IMMATURE GRANULOCYTES ABSOLUTE 0.06 10/3/uL (0.0-0.11); LYMPHOCYTES 10.2 %; LYMPHOCYTES ABSOLUTE 0.91 10/3/uL (0.67-4.30); MANUAL DIFF NO %; MEAN CORPUS HGB CONC 31.8 g/dL (32.0-36.0); MEAN CORPUSCULAR HEMOGLOB 30.3 pg (26.0-34.0); MEAN CORPUSCULAR VOLUME 95.3 fL (80-100); MONOCYTES 6.8 %; MONOCYTES ABSOLUTE 0.61 10/3/uL (0.21-1.20); NEUTROPHILS 77.2 %; NEUTROPHILS ABSOLUTE 6.89 10/3/uL (2.02-8.40); PLATELET COUNT 268 10/3/uL (150-400); RBC DISTRIBUTION WIDTH 14.6 % (12.0-16.0); RED CELL COUNT 2.74 10/6/uL (4.0-5.6); WHITE BLOOD CELLS 8.9 10/3/uL (4.5-10.5)
[2016-10-16 05:26] LABS: A/G RATIO 0.8 (0.7-1.9); ALBUMIN 3.2 G/DL (3.5-5.0); ALKALINE PHOSPHATASE 112 U/L (45-117); BUN (BLOOD UREA NITROGEN) 23 MG/DL (6-23); CALCIUM, SERUM 9.5 MG/DL (8.5-10.4); CHLORIDE, SERUM 114 MMOL/L (96-112); CO2 (CARBON DIOXIDE) 22 MMOL/L (24-34); CREATININE 1.74 MG/DL (0.55-1.02); GFR AFRICAN AMERICAN 38 ML/MIN (>=60); GFR NON AFRICAN AMERICAN 32 ML/MIN (>=60); GLOBULIN 3.8 G/DL (2.5-4.1); GLUCOSE, SERUM 160 MG/DL (60-99); POTASSIUM, SERUM 4.3 MMOL/L (3.5-5.3); SGOT(AST) 40 U/L (5-40); SGPT(ALT) 25 U/L (5-65); SODIUM, SERUM 144 MMOL/L (135-148); TOTAL BILIRUBIN 0.2 MG/DL (0-1.2)
[2016-10-16 05:28] LABS: PHOSPHORUS, SERUM 1.7 MG/DL (2.5-4.5)
[2016-10-17 06:38] LABS: BASOPHILS 0.4 %; BASOPHILS ABSOLUTE 0.03 10/3/uL (0.0-0.16); EOSINOPHILS 4.2 %; EOSINOPHILS ABSOLUTE 0.33 10/3/uL (0.0-0.53); HEMATOCRIT 24.8 % (36.0-48.0); IMMATURE GRANULOCYTES 0.5 %; IMMATURE GRANULOCYTES ABSOLUTE 0.04 10/3/uL (0.0-0.11); LYMPHOCYTES 11.1 %; LYMPHOCYTES ABSOLUTE 0.87 10/3/uL (0.67-4.30); MEAN CORPUS HGB CONC 32.3 g/dL (32.0-36.0); MEAN CORPUSCULAR HEMOGLOB 30.5 pg (26.0-34.0); MEAN CORPUSCULAR VOLUME 94.7 fL (80-100); MEAN PLATELET VOLUME 10.1 fL (9.2-13.0); MONOCYTES ABSOLUTE 0.47 10/3/uL (0.21-1.20); NEUTROPHILS 77.8 %; NEUTROPHILS ABSOLUTE 6.12 10/3/uL (2.02-8.40); PLATELET COUNT 233 10/3/uL (150-400); RBC DISTRIBUTION WIDTH 14.9 % (12.0-16.0); RED CELL COUNT 2.62 10/6/uL (4.0-5.6); WHITE BLOOD CELLS 7.9 10/3/uL (4.5-10.5)
[2016-10-17 06:43] LABS: MANUAL DIFF NO %
[2016-10-17 06:59] LABS: A/G RATIO 0.8 (0.7-1.9); ALBUMIN 3.1 G/DL (3.5-5.0); ALKALINE PHOSPHATASE 114 U/L (45-117); BUN (BLOOD UREA NITROGEN) 20 MG/DL (6-23); CALCIUM, SERUM 8.9 MG/DL (8.5-10.4); CHLORIDE, SERUM 113 MMOL/L (96-112); CO2 (CARBON DIOXIDE) 21 MMOL/L (24-34); CREATININE 1.59 MG/DL (0.55-1.02); GFR AFRICAN AMERICAN 42 ML/MIN (>=60); GFR NON AFRICAN AMERICAN 36 ML/MIN (>=60); GLOBULIN 3.7 G/DL (2.5-4.1); GLUCOSE, SERUM 127 MG/DL (60-99); PHOSPHORUS, SERUM 1.8 MG/DL (2.5-4.5); POTASSIUM, SERUM 4.4 MMOL/L (3.5-5.3); SGPT(ALT) 41 U/L (5-65); SODIUM, SERUM 144 MMOL/L (135-148); TOTAL BILIRUBIN 0.2 MG/DL (0-1.2); TOTAL PROTEIN 6.8 G/DL (6.0-8.5)
[2016-10-17 07:00] LABS: SGOT(AST) 57 U/L (5-40)
[2016-10-17] MEDS ORDERED: FLORASTOR250 MG PO (17:39)
== END 2016-10-17 18:35 | disposition home or self-care (01) | DRG 871 ==
LOC: ER 20:07 → ER/OF 10-11 04:33 → 2SO 10-11 12:42
PROVIDERS: Emergency Medicine; Hospitalist; Internal Medicine; Nurse Practitioner
PROC: 06HM33Z Insertion of Infusion Device into Right Femoral Vein, Percutaneous Approach (ICD-10-PCS; principal; 2016-10-11)
DX: A41.9 Sepsis, unspecified organism (principal); R65.21 Severe sepsis with septic shock; N17.9 Acute kidney failure, unspecified; N18.4 Chronic kidney disease, stage 4 (severe); E11.22 Type 2 diabetes mellitus with diabetic chronic kidney disease; K57.32 Diverticulitis of large intestine without perforation or abscess without bleeding; N28.1 Cyst of kidney, acquired; N39.0 Urinary tract infection, site not specified; J44.9 Chronic obstructive pulmonary disease, unspecified; I12.9 Hypertensive chronic kidney disease with stage 1 through stage 4 chronic kidney disease, or unspecified chronic kidney disease; D50.9 Iron deficiency anemia, unspecified; K21.9 Gastro-esophageal reflux disease without esophagitis; I25.10 Atherosclerotic heart disease of native coronary artery without angina pectoris; E66.9 Obesity, unspecified; R31.9 Hematuria, unspecified; Z88.0 Allergy status to penicillin; Z86.73 Personal history of transient ischemic attack (TIA), and cerebral infarction without residual deficits; Z87.11 Personal history of peptic ulcer disease; Z98.890 Other specified postprocedural states; Z87.891 Personal history of nicotine dependence; Z82.49 Family history of ischemic heart disease and other diseases of the circulatory system; Z83.3 Family history of diabetes mellitus
CPT/HCPCS: 71010; 71020; 73502-LT; 74176; 80048; 80053; 80076; 81001; 82550; 82553; 82962; 83605; 83690; 83735; 83880; 84100; 84132; 84145; 84443; 84484; 85025; 85610; 85730; 87040; 93005; 94640; 96361; 96374; 97161-GP; 99291; A9270-GY; J0692; J1956; J2405; J2916

== ENCOUNTER 2017-01-08 14:17 | Emergency (ER) | payer OTHER ==
[~2017-01-08 14:17] MED LIST changes: +DILT-XR180 MG PO; +EFFEXOR50 MG PO; +FLORASTOR250 MG PO; +L20 PO; +NITROSTAT0.4 MG SL; +PRIN10 PO; +RESEARCH MED PO; +TOPXL50 PO; +ZETIA PO
[2017-01-08 14:41] LABS: BASOPHILS 0.4 %; BASOPHILS ABSOLUTE 0.04 10/3/uL (0.0-0.16); EOSINOPHILS 4.8 %; EOSINOPHILS ABSOLUTE 0.49 10/3/uL (0.0-0.53); ER CBC TAT 0 Hrs 05 Mins; HEMATOCRIT 31.2 % (36.0-48.0); HEMOGLOBIN 10.2 g/dL (12.0-16.0); IMMATURE GRANULOCYTES 0.2 %; IMMATURE GRANULOCYTES ABSOLUTE 0.02 10/3/uL (0.0-0.11); LYMPHOCYTES 15.7 %; LYMPHOCYTES ABSOLUTE 1.61 10/3/uL (0.67-4.30); MANUAL DIFF NO %; MEAN CORPUS HGB CONC 32.7 g/dL (32.0-36.0); MEAN CORPUSCULAR VOLUME 91.8 fL (80-100); MEAN PLATELET VOLUME 10.3 fL (9.2-13.0); MONOCYTES 5.3 %; MONOCYTES ABSOLUTE 0.54 10/3/uL (0.21-1.20); NEUTROPHILS 73.6 %; NEUTROPHILS ABSOLUTE 7.55 10/3/uL (2.02-8.40); PLATELET COUNT 359 10/3/uL (150-400); WHITE BLOOD CELLS 10.3 10/3/uL (4.5-10.5)
[2017-01-08 14:44] LABS: ASCORBIC ACID (UR NOT ORDER) NEG (NEG); BILIRUBIN, URINE NEGATIVE (NEG); ER URINALYSIS TAT 0 Hrs 07 Mins; KETONE, URINE NEGATIVE (NEG); NITRITE (URINE) NEG (NEG); WBC (NOT ORDERED) (RFLEX) < 1 (0-5)
[2017-01-08 14:51] LABS: LEUKOCYTE ESTERASE(NOT OR TRACE (NEG)
[2017-01-08 14:59] LABS: A/G RATIO 0.9 (0.7-1.9); ALBUMIN 3.6 G/DL (3.5-5.0); ALKALINE PHOSPHATASE 104 U/L (45-117); CALCIUM, SERUM 8.8 MG/DL (8.5-10.4); CHLORIDE, SERUM 113 MMOL/L (96-112); CO2 (CARBON DIOXIDE) 22 MMOL/L (24-34); GFR AFRICAN AMERICAN 22 ML/MIN (>=60); GFR NON AFRICAN AMERICAN 19 ML/MIN (>=60); GLOBULIN 3.9 G/DL (2.5-4.1); GLUCOSE, SERUM 118 MG/DL (60-99); POTASSIUM, SERUM 4.7 MMOL/L (3.5-5.3); SGOT(AST) 18 U/L (5-40); SGPT(ALT) 22 U/L (5-65); SODIUM, SERUM 140 MMOL/L (135-148); TOTAL BILIRUBIN 0.5 MG/DL (0-1.2); TOTAL PROTEIN 7.5 G/DL (6.0-8.5)
[2017-01-08 15:00] LABS: BUN (BLOOD UREA NITROGEN) 55 MG/DL (6-23)
== END 2017-01-08 20:13 | disposition home or self-care (01) ==
LOC: ER 14:17
PROVIDERS: Emergency Medicine
DX: N18.4 Chronic kidney disease, stage 4 (severe) (principal); R10.32 Left lower quadrant pain; D64.9 Anemia, unspecified; Z88.0 Allergy status to penicillin; Z88.8 Allergy status to other drugs, medicaments and biological substances; Z79.4 Long term (current) use of insulin; Z79.899 Other long term (current) drug therapy
CPT/HCPCS: 74022; 80053; 81001; 83690; 85025; 99284